=== PATIENT | male | born 1950 | race Caucasian/White ===

== ENCOUNTER → 2020-05-13 | Outpatient (CLI) | payer OTHER ==
[~2020-05-13] MED LIST: ASPIRIN81 MG PO; DEPAKOTE500 MG PO; HYDRALAZINE HCL25 MG PO; LIPITOR TAB 2020 MG PO; MICROZIDE12.5 MG PO; MOBIC15 MG PO; NEURONTIN 400400 MG PO; NORCO 7.5-3251 EACH PO; NORVASC10 MG PO; PREDNISONE50 MG PO; PRINIVIL20 MG PO; VENTOLIN HFA 66.7 GM INH; VIBRAMYCIN 100100 MG PO; ZANAFLEX4 MG PO
== END ==
LOC: KOH-I 12:49
DX: M54.6 Pain in thoracic spine (principal); M48.062 Spinal stenosis, lumbar region with neurogenic claudication; M47.814 Spondylosis without myelopathy or radiculopathy, thoracic region; M47.816 Spondylosis without myelopathy or radiculopathy, lumbar region; M47.817 Spondylosis without myelopathy or radiculopathy, lumbosacral region; M51.26 Other intervertebral disc displacement, lumbar region; M51.27 Other intervertebral disc displacement, lumbosacral region; M48.07 Spinal stenosis, lumbosacral region
CPT/HCPCS: 72146; 72148

== ENCOUNTER → 2020-08-04 | Outpatient (CLI) | payer OTHER | LOC: RAD 16:31 | DX: M51.9 Unspecified thoracic, thoracolumbar and lumbosacral intervertebral disc disorder (principal); M85.88 Other specified disorders of bone density and structure, other site; M51.36 Other intervertebral disc degeneration, lumbar region; M48.061 Spinal stenosis, lumbar region without neurogenic claudication | CPT/HCPCS: 72072; 72100 ==

== ENCOUNTER → 2021-05-04 | Outpatient (CLI) | payer OTHER | LOC: KOH-I 12:32 | DX: M48.54XA Collapsed vertebra, not elsewhere classified, thoracic region, initial encounter for fracture (principal) | CPT/HCPCS: 72070; 72110 ==

== ENCOUNTER → 2022-02-05 | Outpatient (CLI) | payer OTHER | LOC: KOH-I 09:53 | DX: M47.896 Other spondylosis, lumbar region (principal) | CPT/HCPCS: 72070 ==